=== PATIENT | male | born 1960 | race Hispanic/Latino ===

== ENCOUNTER 2017-05-13 13:17 | Outpatient (CLI) | payer OTHER ==
--- NOTE | 2017-05-13 15:27 | Magnetic Resonance Report ---
MRI RIGHT KNEE WITHOUT CONTRAST: 05/13/17 CLINICAL: Right knee pain. TECHNIQUE: Sagittal proton density fat sat and T2, coronal T2 fat sat and proton density and axial gradient T2*sequences on a 1.5 January magnet. FINDINGS: A questionable tear of the anterior root ligament of the lateral meniscus which is only seen on the coronal T2 fat sat sequence. There is corresponding fluid signal adjacent to the ligament on the sagittal proton density sequence. The lateral meniscus is otherwise intact and the medial meniscus is intact. Intact lateral and he'll femoral cartilage. There is a small knee joint effusion with fluid in the suprapatellar bursa. Normal marrow signal with no bone contusion or fracture. The cruciate ligaments and collateral ligaments are intact. Intact posterolateral corner structures including the popliteus tendon. Normal patella with intact cartilage, tendon and retinaculum. There is mild prepatellar and infrapatellar subcutaneous soft tissue edema. The muscles have normal signal. No popliteal fluid collection. IMPRESSION: 1. Possible tear of the lateral meniscus at its anterior root ligament attachment. The menisci are otherwise intact. 2. Small knee joint effusion which would be explained by the meniscal root ligament tear. 3. No ligamentous injury. 4. Nonspecific prepatellar and infrapatellar subcutaneous soft tissue edema. 5. No bone contusion or fracture.
== END 2017-05-13 13:18 | disposition home or self-care (01) ==
LOC: SPVIMAG 13:17
PROVIDERS: ATTEND Family Medicine
DX: M25.461 Effusion, right knee (principal); M25.561 Pain in right knee; I10 Essential (primary) hypertension
CPT/HCPCS: 73721